=== PATIENT | male | born 1970 | race Caucasian/White ===

== ENCOUNTER 2023-04-06 19:08 | Emergency (ER) | payer MEDICAID ==
[~2023-04-06] VITALS: Ht 167.6 cm; Wt 72.6 kg
[2023-04-06 19:08] VITALS: BP 152/79; PULSE 93; RESP 17; TEMP 98; O2SAT 99
--- NOTE | 2023-04-06 19:18 | NUR ---
PT W/C ASSISTED TO LOBBY
--- NOTE | 2023-04-06 19:59 | NUR ---
pt to XR via W/C
--- NOTE | 2023-04-06 20:15 | NUR ---
PT TO BED 9 VIA W/C ASSISTED
--- NOTE | 2023-04-06 20:28 | NUR ---
BROTHER LAURO ELIZONDO [phone] CALLED REQUESTING TO BE PUT ON NEXT OF KIN
[2023-04-06] MEDS ORDERED: KETOROLAC 60 MG/2 ML VIAL IM ONE (21:25)
[2023-04-06] MEDS ORDERED: IBUP-2213 PO (22:18)
[2023-04-06] MEDS ORDERED: HYDR-5191 PO (22:18)
[2023-04-06 22:35] VITALS: BP 155/76; PULSE 97; RESP 17; TEMP 98; O2SAT 99
--- NOTE | 2023-04-06 22:36 | NUR ---
Patient discharged with v/s stable. Written and verbal after care instructions given and explained. Patient verbalized understanding. New rx norco and ibuprofen. Translater used ID#[id number]. Ambulatory with steady gait. All questions addressed prior to discharge. Advised to follow up with PMD. Addendum: 04/06/23 at 2239 by [email or web address] Pt picked up by brother and sister to take home.
== END 2023-04-06 22:36 | disposition home or self-care (01) ==
LOC: MED 19:08
DX: S32.018A Other fracture of first lumbar vertebra, initial encounter for closed fracture (principal); X58.XXXA Exposure to other specified factors, initial encounter; Y93.89 Activity, other specified; Y92.89 Other specified places as the place of occurrence of the external cause; Y99.8 Other external cause status
CPT/HCPCS: 72100; 96372; 99283; J1885